=== PATIENT | female | born 1970 | race Caucasian/White ===

== ENCOUNTER 2022-05-27 16:46 | Emergency (ER) | payer OTHER, BC ==
[2022-05-27 16:51] LABS: Glucose,Whole Blood 76 mg/dL (70-110)
[2022-05-27 16:54] VITALS: TEMP 97.1
[2022-05-27] MEDS ORDERED: SODIUM CHLORIDE 0.9% 500 ML 500 ML IV STA (17:04)
[2022-05-27] MEDS ORDERED: ACETAMINOPHEN TAB 325 MG TAB PO STA (17:05)
[2022-05-27 17:21] LABS: Basophils # (A) 0.1 k/uL (0-0.2); Basophils % (A) 1 %; Eosinophils # (A) 0.1 k/uL (0-0.7); Eosinophils % (A) 1 %; HCT 40.6 % (34.0-46.0); HGB 13.5 gm/dL (11.4-16.0); Lymphocytes # (A) 4.1 k/uL (1.0-4.8); Lymphocytes % (A) 46 %; MCH 31.8 pg (25.0-35.0); MCHC 33.1 g/dL (31.0-37.0); MCV 95.9 fL (80.0-100.0); Mean Platelet Volume 7.4; Monocytes # (A) 0.5 k/uL (0-1.0); Monocytes % (A) 6 %; Neutrophils # (A) 3.8 k/uL (1.3-7.7); Neutrophils % (A) 43 %; Platelet Count 268 k/uL (150-450); RBC 4.24 m/uL (3.80-5.40); RDW 12.9 % (11.5-15.5); WBC 8.9 k/uL (3.8-10.6)
--- NOTE | 2022-05-27 17:30 | CT ---
EXAMINATION TYPE: CT brain wo con DATE OF EXAM: 05/27/2022 COMPARISON: None HISTORY: seizure CT DLP: 1145.4 mGycm Automated exposure control for dose reduction was used. Images obtained of the brain with no contrast. Ventricles and sulci appear normal. There is no mass effect or midline shift. No sign of intracranial hemorrhage. Calvarium is intact. There is normal aeration of the mastoid sinuses. IMPRESSION: Normal unenhanced head CT scan.
[2022-05-27 17:33] LABS: Albumin 4.8 g/dL (3.5-5.0); Calcium 9.3 mg/dL (8.4-10.2); Magnesium 2.2 mg/dL (1.6-2.3); Potassium 3.7 mmol/L (3.5-5.1); Total Bilirubin 0.4 mg/dL (0.2-1.3); Total Protein 7.6 g/dL (6.3-8.2)
[2022-05-27] MEDS ORDERED: diphenhydrAMINE 50 MG/ML 1 ML VIAL IVP STA (18:09)
[2022-05-27] MEDS ORDERED: KETOROLAC 15 MG/ML 1 ML VIAL IVP STA (18:09)
--- NOTE | 2022-05-27 18:11 | ED ---
Seizure HPI - General Chief Complaint: Seizure Stated Complaint: Seizure Time Seen by Provider: 05/27/22 16:50 Source: patient, EMS Mode of arrival: EMS Limitations: no limitations - History of Present Illness Initial Comments: This patient is a 51-year-old woman brought by ambulance to be evaluated after suspected seizure. The patient had gone into a store and was shopping when she reportedly lost consciousness and had shaking movements. The patient also had bitten the right side of her tongue. She was confused following the episode. The patient states that she is feeling closer to her usual self now. She acknowledges having generalized headache, moderate intensity. She complains of pain to the right margin of her tongue. The patient states she had a seizure about 3 years ago, followed with the neurologist and was not given medications to take. MD Complaint: seizure -: minutes(s) Description of Episode: loss of consciousness, tonic-clonic movement, post-event confusion -: second(s) Witnessed: yes - by bystander Seizure History: other Place: other Possible Precipitating Event: none Associated Symptoms: denies other symptoms Treatments Prior to Arrival: none - Related Data Home Medications Medication Instructions Recorded Confirmed Sertraline [Zoloft] 100 mg PO DAILY 05/27/22 05/27/22 Previous Rx's Medication Instructions Recorded Cephalexin [Keflex] 500 mg PO Q6HR #28 cap 05/27/22 Allergies Allergy/AdvReac Type Severity Reaction Status Date / Time Penicillins Allergy Unknown Swelling Verified 05/27/22 17:35 Review of Systems ROS Statement: Those systems with pertinent positive or pertinent negative responses have been documented in the HPI. ROS Other: All systems not noted in ROS Statement are negative. Constitutional: Denies: fever, chills, weakness Eyes: Denies: eye pain, vision change ENT: Reports: other (Tongue laceration). Denies: ear pain, hearing loss Respiratory: Denies: cough, dyspnea Cardiovascular: Denies: chest pain, palpitations, edema Gastrointestinal: Denies: abdominal pain, nausea, vomiting, diarrhea Genitourinary: Denies: dysuria, hematuria Musculoskeletal: Denies: back pain Skin: Denies: rash Neurological: Reports: headache, confusion. Denies: weakness, numbness Past Medical History Past Medical History: No Reported History History of Any Multi-Drug Resistant Organisms: None Reported Past Surgical History: Section Past Psychological History: Anxiety Past Alcohol Use History: Occasional Past Drug Use History: None Reported General Exam Limitations: no limitations General appearance: alert, in no apparent distress Head exam: Present: atraumatic, normocephalic Eye exam: Present: normal appearance, PERRL, EOMI. Absent: scleral icterus, conjunctival injection, nystagmus ENT exam: Present: other (There is an approximately 2 cm laceration to the right side of the tongue, no active bleeding.) Neck exam: Present: normal inspection, full ROM. Absent: tenderness, mening ismus Respiratory exam: Present: normal lung sounds bilaterally. Absent: respiratory distress, wheezes, rales, rhonchi, stridor Cardiovascular Exam: Present: normal rhythm, tachycardia, normal heart sounds. Absent: irregular rhythm, systolic murmur, diastolic murmur, rubs, gallop GI/Abdominal exam: Present: soft. Absent: distended, tenderness, guarding, rebound, rigid, mass Extremities exam: Present: normal inspection, normal capillary refill. Absent: pedal edema, calf tenderness Back exam: Present: normal inspection. Absent: CVA tenderness (R), CVA tenderness (L), vertebral tenderness Neurological exam: Present: alert, oriented X3, CN II-XII intact. Absent: motor sensory deficit Skin exam: Present: warm, dry, intact, normal color. Absent: rash Course Vital Signs 05/27/22 05/27/22 16:49 19:50 Temperature 97.1 F L Pulse Rate 124 H 90 Respiratory 20 16 Rate Blood Pressure 135/85 137/72 O2 Sat by Pulse 93 L 98 Oximetry Procedures - Laceration Laceration #1 Consent Obtained: verbal consent Indication: laceration Site: other (tongue) Size (cm): 3 Description: linear Depth: simple, single layer Anesthetic Used: lidocaine 1% Anesthesia Technique: local infiltration Amount (mls): 2 Type of Sutures: vicryl Size of Sutures: 5-0 Number of Sutures: 3 Technique: simple, interrupted Patient Tolerated Procedure: well, no complications Medical Decision Making - Medical Decision Making This patient is a 51-year-old woman seen here following what sounds like a generalized tonic-clonic seizure, uncomplicated, now back at baseline. The patient did have CT of the brain which I interpreted as not revealing any acute bony trauma and not having any intracranial hemorrhage. The patient states that she would not like to stay in the hospital. As she is back at baseline and the workup is unremarkable she at this point is stable to follow up with either her neurologist or with the on-call neurologist whose information is provided. We discussed appropriate further care and follow-up as well as return parameters. We discussed [place] law in relation to driving. Prior to discharge, the patient decided she would like the laceration to the right aspect of the tongue sutured. Please see the procedure note. Additional history after the patient was fully back to baseline revealed that she had previously been taking Keppra but that had been stopped after she had been seizure free for a period of many months, and she had not had a seizure in many years. She would like to follow with her neurologist. Was pt. sent in by a medical professional or institution ([facility] Romero, MATERIAL EXPEDITER, urgent care, hospital, or correction...) When possible be specific @ -[No] Did you speak to anyone other than the patient for history (EMS, parent, family, police, friend...)? What history was obtained from this source @ -[No] Did you review nursing and triage notes (agree or disagree)? Why? @ -[I reviewed and agree with nursing and triage notes] Were old charts reviewed (outside hosp., previous admission, EMS record, old EKG, old radiological studies, urgent care reports/EKG's, correction records)? Report findings @ -[No old charts were reviewed] Differential Diagnosis (chest pain, altered mental status, abdominal pain women, abdominal pain men, vaginal bleeding, weakness, fever, dyspnea, syncope, headache, dizziness, GI bleed, back pain, seizure, CVA, palpatations, mental health, musculoskeletal)? @ -[Differential Seizure: Recurrent seizure disorder, febrile seizure, alcohol withdrawal, stimulants, meningitis, encephalitis, intercranial hemorrhage, intracranial tumor, stroke, eclampsia, thyrotoxicosis, hypocalcemia, hyponatremia, hypernatremia, hypomagnesemia, psychogenic, this is not meant to be an all-inclusive list. EKG interpreted by me (3pts min.). @ -[As above] X-rays interpreted by me (1pt min.). @ -[None done] CT interpreted by me (1pt min.). @ -[As above U/S interpreted by me (1pt. min.). @ -[None done] What testing was considered but not performed or refused? (CT, X-rays, U/S, labs)? Why? @ -[None] What meds were considered but not given or refused? Why? @ -[None] Did you discuss the management of the patient with other professionals (professionals i.e. , PA, MATERIAL EXPEDITER, lab, RT, psych nurse, psychosocial rehabilitation counselor, hydroelectric plant electrician, te acher, air control/anti air warfare officer, machine adjuster leader case trim)? Give summary @ -[No] Was smoking cessation discussed for >3mins.? @ -[No] Was critical care preformed (if so, how long)? @ -[No] Were there social determinants of health that impacted care today? How? (Homelessness, low income, unemployed, alcoholism, drug addiction, transportation, low edu. Level, literacy, decrease access to med. care, mcc, re hab)? @ -[No] Was there de-escalation of care discussed even if they declined (Discuss DNR or withdrawal of care, Hospice)? DNR status @ -[No] What co-morbidities impacted this encounter? (DM, HTN, Smoking, COPD, CAD, Cancer, CVA, ARF, Chemo, Hep., AIDS, mental health diagnosis, sleep apnea, morbid obesity)? @ -[None] Was patient admitted / discharged? Hospital course, mention meds given and route, prescriptions, significant lab abnormalities, going to OR and other pertinent info. @ -[Discharged Undiagnosed new problem with uncertain prognosis? @ -[No] Drug Therapy requiring intensive monitoring for toxicity (Heparin, Nitro, Insulin, Cardizem)? @ -[No] Were any procedures done? @ -[Suture repair as above Diagnosis/symptom? @ -[Acute, generalized tonic-clonic seizure, uncomplicated Acute tongue laceration, uncomplicated with suture repair Acute, or Chronic, or Acute on Chronic? @ -[default] Uncomplicated (without systemic symptoms) or Complicated (systemic symptoms)? @ -[default] Side effects of treatment? @ -[No] Exacerbation, Progression, or Severe Exacerbation? @ -[No] Poses a threat to life or bodily function? How? (Chest pain, [place], [place], pneumonia, PE, COPD, DKA, ARF, appy, cholecystitis, CVA, Diverticulitis, Homicidal, Sharma icidal, threat to staff... and all critical care pts) @ -[No] - Lab Data Result diagrams: 05/27/22 17:12 05/27/22 17:12 Lab Results 05/27/22 05/27/22 05/27/22 Range/Units 16:50 17:12 17:12 WBC 8.9 (3.8-10.6) k/uL RBC 4.24 (3.80-5.40) m/uL Hgb 13.5 (11.4-16.0) gm/dL Hct 40.6 (34.0-46.0) % MCV 95.9 (80.0-100.0) fL MCH 31.8 (25.0-35.0) pg MCHC 33.1 (31.0-37.0) g/dL RDW 12.9 (11.5-15.5) % Plt Count 268 (150-450) k/uL MPV 7.4 Neutrophils % 43 % Lymphocytes % 46 % Monocytes % 6 % Eosinophils % 1 % Basophils % 1 % Neutrophils # 3.8 (1.3-7.7) k/uL Lymphocytes # 4.1 (1.0-4.8) k/uL Monocytes # 0.5 (0-1.0) k/uL Eosinophils # 0.1 (0-0.7) k/uL Basophils # 0.1 (0-0.2) k/uL Sodium 141 (137-145) mmol/L Potassium 3.7 (3.5-5.1) mmol/L Chloride 104 (98-107) mmol/L Carbon Dioxide 17 L (22-30) mmol/L Anion Gap 20 mmol/L BUN 9 (7-17) mg/dL Creatinine 0.97 (0.52-1.04) mg/dL Est GFR (CKD-EPI)AfAm 80 (>60 ml/min/1.73 sqM) Est GFR (CKD-EPI)NonAf 69 (>60 ml/min/1.73 sqM) Glucose 79 (74-99) mg/dL POC Glucose (mg/dL) 76 (70-110) mg/dL POC Glu Scarf Gluer ID Willing, Veronica Calcium 9.3 (8.4-10.2) mg/dL Magnesium 2.2 (1.6-2.3) mg/dL Total Bilirubin 0.4 (0.2-1.3) mg/dL AST 27 (14-36) U/L ALT 26 (4-34) U/L Alkaline Phosphatase 60 (38-126) U/L Total Protein 7.6 (6.3-8.2) g/dL Albumin 4.8 (3.5-5.0) g/dL - EKG Data -: EKG Interpreted by Ri EKG shows normal: sinus rhythm, axis (Normal), intervals (Normal), QRS complexes (Partial right bundle branch block.) Rate: tachycardia (Rate 110 bpm) Disposition Clinical Impression: Generalized seizure, Tongue laceration Disposition: HOME SELF-CARE Condition: Good Instructions (If sedation given, give patient instructions): Seizure/Epilepsy Discharge Instructions & Follow-Up, Laceration (DC), Recurrent Seizures in Adults (ED) Prescriptions: Cephalexin [Keflex] 500 mg PO Q6HR #28 cap Is patient prescribed a controlled substance at d/c from ED?: No Referrals: None,Stated [REFERRING] - 1-2 days Manny Bautista MD [STAFF PHYSICIAN] - 1-2 days
[2022-05-27] MEDS ORDERED: LIDOCAINE 1% INJ 10MG/ML (10 ML MDV) SQ STA (18:53)
[2022-05-27] MEDS ORDERED: HYDROcodone/APAP 5-325MG 1 EACH TAB PO STA (19:27)
[2022-05-27 20:16] VITALS: BP 137/72; PULSE 90; RESP 16
== END 2022-05-27 19:50 | disposition home or self-care (01) ==
LOC: EC 16:46
DX: S01.512A Laceration without foreign body of oral cavity, initial encounter (principal); R56.9 Unspecified convulsions; F41.9 Anxiety disorder, unspecified; Z79.899 Other long term (current) drug therapy; Z88.0 Allergy status to penicillin; X58.XXXA Exposure to other specified factors, initial encounter
CPT/HCPCS: 99285 ×2; 96374 ×2; 96375 ×2; 96361 ×2; 12013 ×2; 36415; 93005; 80053; 83735; 85025; 70450; J1200; J1885; J2001